=== PATIENT | female | born 1955 | race Caucasian/White ===

== ENCOUNTER 2019-05-24 16:31 | Inpatient (IN) | payer MEDICARE ==
[~2019-05-24] VITALS: Ht 165.1 cm; Wt 81.6 kg
--- NOTE | 2019-05-24 16:52 | NUR ---
"ONE WEEK AGO THIS HAPPENED TOO. TODAY I HAD ANOTHER EPISODE. I LOSE MY WORDS THEN MY RIGHT HAND STARTS TO SHAKE. IT HAPPENED LAST WEEK AND I GOT [facility] AND THEY SENT ME HOME. I'VE HAD A HEADACHE FOR A COUPLE DAYS. IT STARTS IN THE FRONT AND GOES TO THE BACK OF MY HEAD ON BOTH SIDES. I HAVE A HX OF HEADACHES." EDMD BEDSIDE. PER EMS REPORT CT IS PENDINGS AND NEEDS MRI. PIV ESTABLISHED, LEFT HAND. ALSO PER REPORT, PT EPISODES OF RIGHT ARM SHAKING LASTS ABOUT 15 SECONDS AND HAS 1 MINUTE INTERVALS. PT WAS GIVEN VERSED IN THE FIELD AND A TOTAL OF 1 MG [facility] IN THE ER AND HAS NOT HAD ANOTHER EPISODE SINCE. NADN. NO C/O N/V/D, TRAUMA , SYNCOPE, CP, SOB.
--- NOTE | 2019-05-24 17:45 | NUR ---
PT AMBULATORY WITH STEADY GAIT AND ASSISTANCE TO BATHROOM.
[2019-05-24] MEDS ORDERED: ONDANSETRON 2MG/ML, 2ML IVPush PRN (18:30)
[2019-05-24] MEDS ORDERED: ACETAMINOPHEN 325 MG TABLET ONE (18:38)
[2019-05-24] MEDS ORDERED: ONDANSETRON 2MG/ML, 2ML ONE (18:38)
[2019-05-24] MEDS ORDERED: LAMO100T5 PO (19:05)
[2019-05-24] MEDS ORDERED: CYCL-259 PO (19:05)
[2019-05-24] MEDS ORDERED: TRAZ-137 PO (19:05)
[2019-05-24] MEDS ORDERED: METF500T17 PO (19:05)
[2019-05-24] MEDS ORDERED: ZOLP10TA5 PO (19:05)
[2019-05-24] MEDS ORDERED: BENAZEPRIL (19:06)
[2019-05-24] MEDS ORDERED: ACYCLOVIR (19:07)
[2019-05-24] MEDS ORDERED: HYDR12.517 PO (19:08)
--- NOTE | 2019-05-24 19:37 | NUR ---
late entry for 1830: PT RESTING ON CHEVY. BARBARA. NO OTHER NEEDS REQUESTED AT THIS TIME.
--- NOTE | 2019-05-24 19:38 | NUR ---
PT CONTINUES TO REST ON GURPRAKASH. NEW PIV ESTABLISHED. PT TOLERATED WITH NO COMPLICATIONS.
--- NOTE | 2019-05-24 19:46 | NUR ---
REPORT TO EITAN BRICEÑO. ALL QUESTIONS ANSWERED
[2019-05-24 20:55] VITALS: BP 143/86
[2019-05-24] MEDS ORDERED: ACYC-114 PO (21:15)
[2019-05-24] MEDS: INSULIN LISPRO 100 UNITS/ML, PEN SQ-INSULIN SCH (21:21)
[2019-05-24] MEDS ORDERED: BENA20TA54 PO (21:24)
[2019-05-24] MEDS: ACETAMINOPHEN 325 MG TABLET PO PRN (21:26)
[2019-05-24] MEDS ORDERED: HYDR-3653 PO (22:41)
[2019-05-24] MEDS ORDERED: ALBU8.5H8 INH (22:48)
[2019-05-25 04:15] VITALS: BP 133/83
[2019-05-25 05:44] LABS: BASOPHILS # (AUTO) 0.06 x10^3/uL (0-0.1); BASOPHILS % (AUTO) 1 % (0-1); EOSINOPHILS % (AUTO) 3 % (1-7); LYMPHOCYTES # (AUTO) 1.79 x10^3/uL (1-3.4); LYMPHOCYTES % (AUTO) 28 % (22-44); MD NO; MEAN CORPUSCULAR HEMOGLOBIN 27.2 pg (27.0-34.8); MEAN CORPUSCULAR HGB CONC 32.7 g/dL (32.4-35.8); MONOCYTES # (AUTO) 0.69 x10^3/uL (0.2-0.8); MONOCYTES % (AUTO) 11 % (2-9); NEUTROPHILS # (AUTO) 3.63 x10^3/uL (1.8-6.8); NEUTROPHILS % (AUTO) 57 % (42-75); PLATELET COUNT 233 x10^3/uL (130-400); RED BLOOD COUNT 4.76 x10^6/uL (3.82-5.3); RED CELL DISTRIBUTION WIDTH 13.5 % (9.6-15.2)
[2019-05-25 05:49] LABS: ANION GAP 5 mmol/L (5-15); CALCIUM 8.5 mg/dL (8.5-10.1); CHLORIDE 106 mmol/L (98-107); CREATININE 0.95 mg/dL (0.55-1.02)
[2019-05-25 05:53] LABS: TROPONIN I < 0.015 ng/mL (0.000-0.045)
[2019-05-25] MEDS: INSULIN LISPRO 100 UNITS/ML, PEN SQ-INSULIN SCH ×4 (07:00→20:00)
[2019-05-25 08:20] VITALS: BP 142/85
[2019-05-25] MEDS ORDERED: LORazepam 2 MG/ML, 1ML IVPush PRN (09:00)
[2019-05-25] MEDS ORDERED: LORazepam 2 MG/ML, 1ML IVPush ONE (09:00)
[2019-05-25] MEDS ORDERED: POTASSIUM CHLORIDE 20 MEQ TAB.ER.PRT PO ONE (09:30)
[2019-05-25] MEDS ORDERED: POTASSIUM CHLORIDE 20 MEQ TAB.ER.PRT ONE (14:12)
[2019-05-25] MEDS: ACETAMINOPHEN 325 MG TABLET PO PRN ×2 (14:14→20:21)
[2019-05-25] MEDS: PROPRANOLOL 10 MG TABLET PO PRN (14:15)
[2019-05-25 17:01] VITALS: BP 135/87
[2019-05-25 19:43] VITALS: BP 155/90
[2019-05-26] MEDS: PROPRANOLOL 10 MG TABLET PO PRN ×3 (01:00→15:13)
[2019-05-26] MEDS: ACETAMINOPHEN 325 MG TABLET PO PRN ×4 (01:00→21:42)
[2019-05-26 01:04] VITALS: BP 159/86
[2019-05-26 05:14] LABS: BASOPHILS # (AUTO) 0.06 x10^3/uL (0-0.1); BASOPHILS % (AUTO) 1 % (0-1); EOSINOPHILS % (AUTO) 3 % (1-7); LYMPHOCYTES # (AUTO) 1.76 x10^3/uL (1-3.4); LYMPHOCYTES % (AUTO) 28 % (22-44); MD NO; MEAN CORPUSCULAR HGB CONC 32.3 g/dL (32.4-35.8); MEAN CORPUSCULAR VOLUME 83.7 fL (80-100); MEAN PLATELET VOLUME 7.8 fL (7.4-10.4); MONOCYTES # (AUTO) 0.65 x10^3/uL (0.2-0.8); MONOCYTES % (AUTO) 10 % (2-9); NEUTROPHILS # (AUTO) 3.65 x10^3/uL (1.8-6.8); NEUTROPHILS % (AUTO) 58 % (42-75); PLATELET COUNT 273 x10^3/uL (130-400); RED BLOOD COUNT 4.94 x10^6/uL (3.82-5.3); RED CELL DISTRIBUTION WIDTH 13.2 % (9.6-15.2)
[2019-05-26 05:24] LABS: ANION GAP 6 mmol/L (5-15); CALCIUM 8.3 mg/dL (8.5-10.1); CHLORIDE 104 mmol/L (98-107)
[2019-05-26 05:26] LABS: CREATININE 0.84 mg/dL (0.55-1.02)
[2019-05-26] MEDS: INSULIN LISPRO 100 UNITS/ML, PEN SQ-INSULIN SCH ×4 (07:00→21:40)
[2019-05-26 07:05] VITALS: BP 148/86
[2019-05-26 13:07] VITALS: BP 159/95
[2019-05-26 20:35] VITALS: BP 161/93
[2019-05-27 00:08] VITALS: BP 164/83
[2019-05-27] MEDS: PROPRANOLOL 10 MG TABLET PO PRN (00:11)
[2019-05-27] MEDS: INSULIN LISPRO 100 UNITS/ML, PEN SQ-INSULIN SCH ×2 (07:00→10:55)
[2019-05-27 07:34] VITALS: BP 126/95
[2019-05-27] MEDS ORDERED: BENAZEPRIL 20 MG TABLET PO SCH (09:00)
[2019-05-27] MEDS ORDERED: PROP10TA16 PO (10:59)
== END 2019-05-27 12:30 | disposition home or self-care (01) | DRG 880 ==
LOC: ED 19:59 → EDIP 20:39 → 4EST 20:50 → DCLOUNGE 05-27 12:19
PROVIDERS: ADMIT Internal Medicine; ATTEND Hospitalist
DX: F41.8 Other specified anxiety disorders (principal); G40.89 Other seizures; R47.01 Aphasia; F32.9 Major depressive disorder, single episode, unspecified; B00.9 Herpesviral infection, unspecified; F41.1 Generalized anxiety disorder; F29 Unspecified psychosis not due to a substance or known physiological condition; I10 Essential (primary) hypertension; M79.7 Fibromyalgia; Z79.4 Long term (current) use of insulin; Z86.73 Personal history of transient ischemic attack (TIA), and cerebral infarction without residual deficits; Z90.710 Acquired absence of both cervix and uterus; G43.909 Migraine, unspecified, not intractable, without status migrainosus; M19.90 Unspecified osteoarthritis, unspecified site; Z90.49 Acquired absence of other specified parts of digestive tract
CPT/HCPCS: 36415; 80048; 82962; 84443; 84484; 85025; 95816; 99285; G0378; J2060